=== PATIENT | male | born 2000 | race Caucasian/White ===

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

== ENCOUNTER 2023-04-07 20:48 | Emergency (ER) | payer MEDICAID ==
[~2023-04-07] VITALS: Ht 162.6 cm; Wt 59.5 kg
[2023-04-07 21:20] VITALS: BP 131/97; PULSE 96; TEMP 98; O2SAT 98
== END 2023-04-08 00:30 | disposition home or self-care (01) ==
LOC: ER 20:48
DX: S63.691A Other sprain of left index finger, initial encounter (principal); V00.131A Fall from skateboard, initial encounter; Y93.89 Activity, other specified; Y92.89 Other specified places as the place of occurrence of the external cause; Y99.8 Other external cause status
CPT/HCPCS: 73130; 99283